=== PATIENT | male | born 1950 ===

== ENCOUNTER 2022-01-07 11:13 | Day surgery (SDC) | payer MEDICARE, OTHER ==
[2022-01-07] MEDS ORDERED: Lactated Ringers 1,000 ML IV SCH (11:30)
[2022-01-07] MEDS ORDERED: DIPRIVAN 200 MG/20 ML IV ONE (14:36)
[2022-01-07] MEDS ORDERED: Versed 2 MG/2 ML Injection ONE (14:36)
[2022-01-07 16:02] VITALS: BP 133/81; PULSE 91; O2SAT 97
--- NOTE | 2022-01-08 08:06 | OP ---
SURGERY DATE/TIME: 01/07/2022 1438 PREOPERATIVE DIAGNOSIS: Possible sigmoid obstruction. POSTOPERATIVE DIAGNOSIS: Moderate sigmoid stricture with significant diverticulosis in the area. PROCEDURE: Gross colonoscopy to cecum. SURGEON: Kain Johnston M.D. ANESTHESIA: MAC. COMPLICATIONS: None. CONDITION: Stable. INDICATION: The patient referred with possible obstruction. He was immediately scheduled for colonoscopy here today at [facility]. DESCRIPTION OF PROCEDURE: Bowel prep was given. Bowel prep was not really taken or tolerated well. Fleet's enema was also given. MAC sedation. Scope introduced. Rectum was satisfactory. There were some chronic changes of the anus and rectum nothing impressive, just a little irritated in nature. There was stool even down here. The sigmoid was cannulated about 14 cm. Several large sigmoid diverticulosis were present, then it narrowed and angulated but with care and patience before inspection a very angulated colon was cannulated. It cannulated fairly readily. It was not super tight. I think there was certainly stricture compared to the diameter of his regular colon here. The regular diameter is probably 4 cm and in this area is more 2.5 cm. But then after breaking out of this it is a little functionally obstructed. There was a large amount of stool above this with liquid stool, very nasty. Scope was advanced over the cecum. Base of the cecum, ileocecal valve, cecum itself was normal but the colon between the sigmoid and cecum had about 50% visibility of the wall at most. Barium enema has been ordered for tomorrow. At the moment, I do not see this as being totally obstructed or surgically acutely obstructed. We will get a barium enema examination. At the moment, I am not seeing there is going to be an absolute surgical intervention here although there certainly may be some functional obstructiveness to this area and barium enema hopefully will be helpful. We will see him back in the office.
== END 2022-01-07 15:55 | disposition home or self-care (01) ==
LOC: SDC 11:13
PROVIDERS: ATTEND Surgery
DX: Q42.8 Congenital absence, atresia and stenosis of other parts of large intestine (principal); K57.30 Diverticulosis of large intestine without perforation or abscess without bleeding
CPT/HCPCS: 99100; J2250; J2704